=== PATIENT | female | born 1990 | race American Indian/Alaskan Native ===

== ENCOUNTER 2019-04-26 10:19 | Emergency (ER) | payer SELFPAY ==
--- NOTE | 2019-04-26 10:51 | Emergency Department Report ---
ED HPI - General Chief complaint: Abdominal Pain Stated complaint: FEVER, SHARP PAIN,BODY ACHES Time Seen by Provider: 04/26/19 10:48 Source: patient Mode of arrival: Ambulatory Limitations: No Limitations - History of Present Illness Initial comments: 28-year-old -[place] female patient complains of left lower abdominal pain radiating to her left flank last night area she states she is 6-8 weeks , however has not had any care to this point. She does state she has an [facility] SUPERVISOR appointment on 05/20/2019. She denies any dysuria/hematuria, vaginal bleeding/discharge, history of kidney stones or kidney infection, or nausea/vomiting/diarrhea. She rates her pain as a 8/10 in severity states she had a tactile fever last night. Patient is . She denies any history of ectopic pregnancies. Location: abdomen Radiation: L flank Severity scale (0 -10): 8 Quality: stabbing Consistency: constant Improves with: none Worsens with: none - Related Data Previous Rx's Medication Instructions Recorded Last Taken Type cefUROXime [Ceftin] 250 mg PO Q12H 3 Days #6 tablet 04/26/19 Unknown Rx Allergies Allergy/AdvReac Type Severity Reaction Status Date / Time No Known Allergies Allergy Unverified 04/26/19 10:22 ED Review of Systems ROS: Stated complaint: FEVER, SHARP PAIN,BODY ACHES Other details as noted in HPI Comment: All other systems reviewed and negative Constitutional: chills, fever, malaise Gastrointestinal: as per HPI. denies: diarrhea, constipation, hematemesis, melena, hematochezia Genitourinary: frequency. denies: dysuria, hematuria, discharge ED Past Medical Hx - Past Medical History Previous Medical History?: Yes Additional medical history: Vaginal delivery x 3 - Surgical History Past Surgical History?: No - Social History Smoking Status: Never Smoker - Medications Home Medications: Home Medications Medication Instructions Recorded Confirmed Last Taken Type cefUROXime [Ceftin] 250 mg PO Q12H 3 Days #6 tablet 04/26/19 Unknown Rx ED Physical Exam - General Limitations: No Limitations General appearance: alert, in no apparent distress - Head Head exam: Present: atraumatic, normocephalic - Eye Eye exam: Present: normal appearance. Absent: scleral icterus - Neck Neck exam: Present: normal inspection, full ROM - Respiratory Respiratory exam: Present: normal lung sounds bilaterally. Absent: respiratory distress - Cardiovascular Cardiovascular Exam: Present: normal rhythm, tachycardia, normal heart sounds - GI/Abdominal GI/Abdominal exam: Present: soft, tenderness. Absent: distended, rebound, rigid (left lower quadrant and left side of abdomen) - Extremities Exam Extremities exam: Present: normal inspection. Absent: calf tenderness - Back Exam Back exam: Present: normal inspection, full ROM, CVA tenderness (L). Absent: CVA tenderness (R) - Neurological Exam Neurological exam: Present: alert, oriented X3 - Psychiatric Psychiatric exam: Present: normal affect, normal mood - Skin Skin exam: Present: warm, dry, intact, normal color. Absent: rash ED Course Vital Signs 04/26/19 04/26/19 04/26/19 10:22 11:48 13:34 Temperature 99.8 F H 101.1 F H 99.1 F Pulse Rate 119 H 105 H Respiratory 20 18 Rate Blood Pressure 126/65 Blood Pressure 105/58 [Left] O2 Sat by Pulse 97 99 Oximetry ED Medical Decision Making - Lab Data Result diagrams: 04/26/19 10:57 04/26/19 10:57 Lab Results 04/26/19 04/26/19 04/26/19 Range/Units 10:57 10:57 10:57 WBC 3.7 L (4.5-11.0) K/mm3 RBC 3.93 (3.65-5.03) M/mm3 Hgb 12.2 (10.1-14.3) gm/dl Hct 34.8 (30.3-42.9) % MCV 89 (79-97) fl MCH 31 (28-32) pg MCHC 35 H (30-34) % RDW 13.3 (13.2-15.2) % Plt Count 263 (140-440) K/mm3 Lymph % (Auto) 16.0 (13.4-35.0) % [place] % (Auto) 18.9 H (0.0-7.3) % Eos % (Auto) 0.3 (0.0-4.3) % Baso % (Auto) 0.3 (0.0-1.8) % Lymph # 0.6 L (1.2-5.4) K/mm3 [place] # 0.7 (0.0-0.8) K/mm3 Eos # 0.0 (0.0-0.4) K/mm3 Baso # 0.0 (0.0-0.1) K/mm3 Seg Neutrophils % 64.5 (40.0-70.0) % Seg Neutrophils # 2.4 (1.8-7.7) K/mm3 Sodium 134 L (137-145) mmol/L Potassium 3.3 L (3.6-5.0) mmol/L Chloride 99.6 (98-107) mmol/L Carbon Dioxide 19 L (22-30) mmol/L Anion Gap 19 mmol/L BUN 8 (7-17) mg/dL Creatinine 0.7 (0.7-1.2) mg/dL Estimated GFR > 60 ml/min BUN/Creatinine Ratio 11 % Glucose 110 H (65-100) mg/dL Lactic Acid (0.7-2.0) mmol/L Calcium 8.9 (8.4-10.2) mg/dL Total Bilirubin 0.30 (0.1-1.2) mg/dL AST 16 (5-40) units/L ALT 15 (7-56) units/L Alkaline Phosphatase 70 (35-129) units/L Total Protein 7.7 (6.3-8.2) g/dL Albumin 4.1 (3.9-5) g/dL Albumin/Globulin Ratio 1.1 % HCG, Qual Positive (Negative) HCG, Quant (0-4) mIU/mL Urine Color (Yellow) Urine Turbidity (Clear) Urine pH (5.0-7.0) Ur Specific [place] (1.003-1.030) Urine Protein (Negative) mg/dL Urine Glucose (UA) (Negative) mg/dL Urine Ketones (Negative) mg/dL Urine Blood (Negative) Urine Nitrite (Negative) Urine Bilirubin (Negative) Urine Urobilinogen (<2.0) mg/dL Ur Leukocyte Esterase (Negative) Urine WBC (Auto) (0.0-6.0) /HPF Urine RBC (Auto) (0.0-6.0) /HPF U Epithel Cells (Auto) (0-13.0) /HPF Urine Mucus /HPF 04/26/19 04/26/19 04/26/19 Range/Units 11:09 12:15 12:47 WBC (4.5-11.0) K/mm3 RBC (3.65-5.03) M/mm3 Hgb (10.1-14.3) gm/dl Hct (30.3-42.9) % MCV (79-97) fl MCH (28-32) pg MCHC (30-34) % RDW (13.2-15.2) % Plt Count (140-440) K/mm3 Lymph % (Auto) (13.4-35.0) % [place] % (Auto) (0.0-7.3) % Eos % (Auto) (0.0-4.3) % Baso % (Auto) (0.0-1.8) % Lymph # (1.2-5.4) K/mm3 [place] # (0.0-0.8) K/mm3 Eos # (0.0-0.4) K/mm3 Baso # (0.0-0.1) K/mm3 Seg Neutrophils % (40.0-70.0) % Seg Neutrophils # (1.8-7.7) K/mm3 Sodium (137-145) mmol/L Potassium (3.6-5.0) mmol/L Chloride (98-107) mmol/L Carbon Dioxide (22-30) mmol/L Anion Gap mmol/L BUN (7-17) mg/dL Creatinine (0.7-1.2) mg/dL Estimated GFR ml/min BUN/Creatinine Ratio % Glucose (65-100) mg/dL Lactic Acid 1.00 (0.7-2.0) mmol/L Calcium (8.4-10.2) mg/dL Total Bilirubin (0.1-1.2) mg/dL AST (5-40) units/L ALT (7-56) units/L Alkaline Phosphatase (35-129) units/L Total Protein (6.3-8.2) g/dL Albumin (3.9-5) g/dL Albumin/Globulin Ratio % HCG, Qual (Negative) HCG, Quant 5053 H (0-4) mIU/mL Urine Color Yellow (Yellow) Urine Turbidity Cloudy (Clear) Urine pH 5.0 (5.0-7.0) Ur Specific [place] 1.021 (1.003-1.030) Urine Protein <15 mg/dl (Negative) mg/dL Urine Glucose (UA) Neg (Negative) mg/dL Urine Ketones 20 (Negative) mg/dL Urine Blood Mod (Negative) Urine Nitrite Neg (Negative) Urine Bilirubin Neg (Negative) Urine Urobilinogen < 2.0 (<2.0) mg/dL Ur Leukocyte Esterase Sm (Negative) Urine WBC (Auto) 4.0 (0.0-6.0) /HPF Urine RBC (Auto) 6.0 (0.0-6.0) /HPF U Epithel Cells (Auto) 13.0 (0-13.0) /HPF Urine Mucus 2+ /HPF - Radiology Data Radiology results: report reviewed Obstetrical ultrasound. HISTORY: Pelvic pain. FINDINGS: Imaging was performed transabdominally and endovaginally. The uterus measures 11.4 x 4.7 x 8.1 cm. The endometrial stripe measures 1.2 cm. A small amount of decreased echogenicity along the stripe posteriorly is likely blood. A small hypoechoic area is likely an early gestational sac. This contains no yolk sac or pole. An anterior echogenic lesion at the fundus measuring 1.3 cm is likely a fibroid. Right ovary measures 3.3 x 1.6 x 2.3 cm. Left ovary measures 3.6 x 1.9 x 3.8 cm. A complex corpus luteum cyst on the left measures 2.5 cm. IMPRESSION: 1. Suspect early intrauterine . 2. Suspect small amount of blood at the endometrial stripe. 3. Small uterine fibroid. 4. 2.5 cm suspected left corpus luteum cyst. - Medical Decision Making 28-year-old -[place] female patient complains of left lower abdominal pain radiating to her left flank last night area she states she is 6-8 weeks . Ultrasound shows early gestational sac. Beta hCG greater than 5000. WBCs are normal. UA shows a few wbc's. Patient initially mildly tachycardic with a low-grade fever upon arrival. Upon further investigation, patient's states he was recently diagnosed with the flu and his symptoms just resolved one day ago. Heart rate on exam now 94 bpm post fluids. Patient states she is no longer having any abdominal pain post Tylenol. Suspect flu syndrome. Discussed patient with Dr. Flaherty treatment for UTI with Ceftin. Discussed need for follow-up with [facility]PER[facility]OR within 3-5 days and strict return precautions in great detail with patient and patient's who verbalize understanding. Critical care attestation.: If time is entered above; I have spent that time in minutes in the direct care of this critically ill patient, excluding procedure time. ED Disposition Clinical Impression: Flu syndrome Abdominal pain in Qualifiers: Trimester: first trimester Qualified Code(s): O26.891 - Other specified related conditions, first trimester UTI (urinary tract infection) Qualifiers: Urinary tract infection type: acute cystitis Hematuria presence: without hematuria Qualified Code(s): N30.00 - Acute cystitis without hematuria Disposition: TO HOME OR SELFCARE Is pt being admited?: No Condition: Stable Instructions: Urinary Tract Infection in Women (ED), Influenza (ED) Additional Instructions: Please follow-up with your [facility] SUPERVISOR in 5-7 days. Return to the emergency department if he developed any new or worsening symptoms as discussed Prescriptions: cefUROXime [Ceftin] 250 mg PO Q12H 3 Days #6 tablet Referrals: PRIMARY CARE, [Primary Care Provider] - 3-5 Days
[2019-04-26 11:42] LABS: Eosinophils % (Auto) 0.3 % (0.0-4.3); Monocytes # (Auto) 0.7 K/mm3 (0.0-0.8)
[2019-04-26 11:53] LABS: Alanine Aminotransferase 15 units/L (7-56); Albumin 4.1 g/dL (3.9-5); BUN/Creatinine Ratio 11; Blood Urea Nitrogen 8 mg/dL (7-17); Calcium 8.9 mg/dL (8.4-10.2); Hemolysis Index 14
[2019-04-26] MEDS ORDERED: ACETAMINOPHEN 500 MG TAB PO ONE (11:55)
[2019-04-26 11:56] LABS: Hematocrit 34.8 % (30.3-42.9); Hemoglobin 12.2 gm/dl (10.1-14.3); Mean Corpuscular HGB Conc 35 % (30-34); Mean Corpuscular Volume 89 fl (79-97); Monocytes % (Auto) 18.9 % (0.0-7.3); Platelet Count 263 K/mm3 (140-440); Red Blood Count 3.93 M/mm3 (3.65-5.03); Red Cell Distribution Width 13.3 % (13.2-15.2)
[2019-04-26] MEDS ORDERED: SODIUM CHLORIDE 0.9% 1000 ML 1,000 ML IV ONE (11:56)
[2019-04-26 11:57] LABS: Basophils % (Auto) 0.3 % (0.0-1.8); Lymphocytes # (Auto) 0.6 K/mm3 (1.2-5.4)
[2019-04-26 12:17] LABS: Bilirubin,Urine NEG (Negative); Blood,Urine MOD (Negative); Color,Urine Yellow (Yellow); Mucus,Urine 2+ /HPF; Protein,Urine <15 mg/dL mg/dL (Negative); Urobilinogen,Urine < 2.0 mg/dL (<2.0)
--- NOTE | 2019-04-26 12:30 | Ultrasound Report ---
Obstetrical ultrasound. HISTORY: Pelvic pain. FINDINGS: Imaging was performed transabdominally and endovaginally. The uterus measures 11.4 x 4.7 x 8.1 cm. The endometrial stripe measures 1.2 cm. A small amount of decreased echogenicity along the st ripe posteriorly is likely blood. A small hypoechoic area is likely an early gestational sac. This co ntains no yolk sac or pole. An anterior echogenic lesion at the fundus measuring 1.3 cm is likely a fibroid. Right ovary measures 3.3 x 1.6 x 2.3 cm. Left ovary measures 3.6 x 1.9 x 3.8 cm. A complex corpus lut eum cyst on the left measures 2.5 cm. IMPRESSION: 1. Suspect early intrauterine . 2. Suspect small amount of blood at the endometrial stripe. 3. Small uterine fibroid. 4. 2.5 cm suspected left corpus luteum cyst. Signer Name: Maury Reyes MD Signed: 04/26/2019 12:26 PM Workstation Name: [id number]
[2019-04-26 13:35] VITALS: BP 105/58
== END 2019-04-26 14:39 | disposition home or self-care (01) ==
LOC: ED 10:19
DX: O23.41 Unspecified infection of urinary tract in pregnancy, first trimester (principal); Z79.899 Other long term (current) drug therapy; Z3A.01 Less than 8 weeks gestation of pregnancy
CPT/HCPCS: 36415; 76801; 76817; 80053; 81001; 82140; 84702; 84703; 85025; 99284; J7030

== ENCOUNTER 2019-04-29 12:30 | Emergency (ER) | payer SELFPAY ==
--- NOTE | 2019-04-29 13:08 | Emergency Department Report ---
Blank Doc - Documentation Documentation: 29-year-old female that presents with pelvic pain and vaginal bleeding. 6 weeks . This initial assessment/diagnostic orders/clinical plan/treatment(s) is/are subject to change based on patient's health status, clinical progression and re- assessment by fellow clinical providers in the ED. Further treatment and workup at subsequent clinical providers discretion. Patient/guardians urged not to elope from the ED as their condition may be serious if not clinically assessed and managed. Initial orders include: 1- Patient sent to [facility] for further evaluation and treatment 2- labs 3- UA 4- US OB
[2019-04-29] MEDS ORDERED: SODIUM CHLORIDE 0.9% 1000 ML 1,000 ML IV ONE (13:58)
[2019-04-29 14:00] LABS: Bilirubin,Urine NEG (Negative); Blood,Urine LG (Negative); Color,Urine Amber (Yellow); Mucus,Urine 3+ /HPF; Urobilinogen,Urine < 2.0 mg/dL (<2.0)
[2019-04-29 14:01] LABS: RBC,Urine > 182.0 /HPF (0.0-6.0)
--- NOTE | 2019-04-29 14:09 | Emergency Department Report ---
ED Female HPI - General Chief complaint: Vaginal Bleeding Stated complaint: 6 WKS /LOWER/BACK PAIN Time Seen by Provider: 04/29/19 13:06 Source: patient Mode of arrival: Ambulatory Limitations: No Limitations - History of Present Illness Initial comments: 29 yo female 6 weeks started vaginal bleeding, lower abdominal pain,and low back pain yesterday. The bleeding has increased with small clots. Pt used 3- 4 pads overnight. She was seen in this ER on 04/26 dx with UTI and flu syndrome. She did not take Ceftin as prescribed. States she did not have insurance to pay. Pt is scheduled for her first [facility] visit on 05/20/18. misc.1 - Related Data Previous Rx's Medication Instructions Recorded Last Taken Type cephALEXin [Keflex] 500 mg PO Q12HR 7 Days #14 cap 04/29/19 Unknown Rx Allergies Allergy/AdvReac Type Severity Reaction Status Date / Time No Known Allergies Allergy Verified 04/29/19 16:05 ED Review of Systems ROS: Stated complaint: 6 WKS /LOWER/BACK PAIN Other details as noted in HPI Comment: All other systems reviewed and negative Constitutional: denies: chills, fever Cardiovascular: denies: chest pain Gastrointestinal: abdominal pain Genitourinary: other (VAGINAL BLEEDING) ED Past Medical Hx - Past Medical History Previous Medical History?: No Additional medical history: Vaginal delivery x 3 - Surgical History Past Surgical History?: No - Social History Smoking Status: Never Smoker Substance Use Type: None - Medications Home Medications: Home Medications Medication Instructions Recorded Confirmed Last Taken Type cephALEXin [Keflex] 500 mg PO Q12HR 7 Days #14 cap 04/29/19 Unknown Rx ED Physical Exam - General Limitations: No Limitations General appearance: alert, in no apparent distress - Head Head exam: Present: atraumatic - Eye Eye exam: Present: normal appearance - ENT ENT exam: Present: normal exam - Respiratory Respiratory exam: Present: normal lung sounds bilaterally. Absent: respiratory distress, wheezes - Cardiovascular Cardiovascular Exam: Present: regular rate, normal heart sounds - GI/Abdominal GI/Abdominal exam: Present: soft. Absent: distended, tenderness, guarding - Rectal Rectal exam: Present: deferred - Extremities Exam Extremities exam: Present: normal inspection - Back Exam Back exam: Present: normal inspection - Neurological Exam Neurological exam: Present: alert, oriented X3 - Psychiatric Psychiatric exam: Present: normal affect - Skin Skin exam: Present: warm, dry, intact, normal color ED Course Vital Signs 04/29/19 04/29/19 04/29/19 13:07 19:27 19:32 Temperature 99.2 F 98 F Pulse Rate 110 H 88 Respiratory 18 16 18 Rate Blood Pressure 119/72 116/78 [Right] O2 Sat by Pulse 96 100 100 Oximetry ED Medical Decision Making - Lab Data Result diagrams: 04/29/19 13:47 - Radiology Data Radiology results: report reviewed US FINDINGS: Uterus measures 9.9 cm with uterine fibroid noted. The small intrarenal uterine fluid collection is again noted without demonstrable pole. It is uncertain if this represents a gestational sac or localized fluid collection, the appearance is not changed significantly. There is a 2 cm left ovarian cyst. The right ovary is normal. No fluid collections are seen in the cul-de-sac. IMPRESSION: 1. No demonstrated pole within intrauterine fluid collection that may represent a gestational sac. - Medical Decision Making 29 yo female approx 6 weeks with Vaginal bleeding US FINDINGS: Uterus measures 9.9 cm with uterine fibroid noted. The small intrarenal uterine fluid collection is again noted without demons trable pole. It is uncertain if this represents a gestational sac or localized fluid collection, the appearance is not changed significantly. RH O POS Hx of UTI non compliant with antibiotic. Igm IV rocephin given IN er Discussed with OB-[facility]IC[facility] DR NAQVI PT to follow up with Dr. Naqvi on Sunday . Rest increase hydration Critical care attestation.: If time is entered above; I have spent that time in minutes in the direct care of this critically ill patient, excluding procedure time. ED Disposition Clinical Impression: Threatened UTI (urinary tract infection) Qualifiers: Urinary tract infection type: urethritis Qualified Code(s): N34.2 - Other urethritis Disposition: -01 TO HOME OR SELFCARE Is pt being admited?: No Does the pt Need Aspirin: No Condition: Stable Instructions: Threatened Miscarriage (ED), Urinary Tract Infection in Women (ED) Additional Instructions: Follow up with Dr. Naqvi on Sunday please call office on to schedule appointment [phone] Return to ER for any worsening pain or fever Prescriptions: cephALEXin [Keflex] 500 mg PO Q12HR 7 Days #14 cap Referrals: MICHAEL NAQVI MD [Staff Physician] - 3-5 Days Time of Disposition: 18:55
[2019-04-29 14:23] LABS: Basophils % (Auto) 0.4 % (0.0-1.8); Hematocrit 38.6 % (30.3-42.9); Hemoglobin 13.4 gm/dl (10.1-14.3); Lymphocytes # (Auto) 1.7 K/mm3 (1.2-5.4); Lymphocytes % (Auto) 38.6 % (13.4-35.0); Mean Corpuscular HGB Conc 35 % (30-34); Mean Corpuscular Volume 90 fl (79-97); Monocytes # (Auto) 0.7 K/mm3 (0.0-0.8); Monocytes % (Auto) 15.7 % (0.0-7.3); Platelet Count 251 K/mm3 (140-440); Red Blood Count 4.31 M/mm3 (3.65-5.03); Red Cell Distribution Width 13.1 % (13.2-15.2)
[2019-04-29] MEDS ORDERED: ACETAMINOPHEN 325 MG TAB PO ONE (15:59)
[2019-04-29] MEDS ORDERED: ACETAMINOPHEN 325 MG TAB ONE (16:02)
--- NOTE | 2019-04-29 18:01 | Ultrasound Report ---
US OB <= 14 weeks fetus, US OB transvaginal INDICATION / CLINICAL INFORMATION: vaginal bleeding , . COMPARISON: 04/26/2019 FINDINGS: Uterus measures 9.9 cm with uterine fibroid noted. The small intrarenal uterine fluid collection is again noted without demonstrable pole. It is u ncertain if this represents a gestational sac or localized fluid collection, the appearance is not ch anged significantly. There is a 2 cm left ovarian cyst. The right ovary is normal. No fluid collections are seen in the cul-de-sac. IMPRESSION: 1. No demonstrated pole within intrauterine fluid collection that may represent a gestational s ac. Signer Name: Thang You MD Signed: 04/29/2019 5:56 PM Workstation Name: [id number]
[2019-04-29] MEDS ORDERED: cefTRIAXone/NS 1 GM/50 ML 1 GM/50 ML BAG IV ONE ×2 (18:53→18:56)
[2019-04-29 19:28] VITALS: BP 116/78
== END 2019-04-29 19:34 | disposition home or self-care (01) ==
LOC: ED 12:30
DX: O20.0 Threatened abortion (principal); O23.41 Unspecified infection of urinary tract in pregnancy, first trimester; Z3A.01 Less than 8 weeks gestation of pregnancy
CPT/HCPCS: 36415; 76801; 76817; 81001; 84702; 85025; 86900; 86901; 87086; 96361; 96365; 99284; J0696; J7030